=== PATIENT | female | born 1940 | race Caucasian/White ===

== ENCOUNTER 2016-12-19 13:59 | Inpatient (IN) | payer OTHER ==
[~2016-12-19] VITALS: Ht 157.5 cm; Wt 49.5 kg
[2016-12-19] MEDS ORDERED: SODIUM CHLORIDE FLUSH 10ML SYR IVF ONE ×2 (15:00→15:30)
[2016-12-19] MEDS ORDERED: ONDANSETRON 2MG/ML, 2ML IVPush ONE ×2 (15:00→15:30)
[2016-12-19 15:06] LABS: BLOOD UREA NITROGEN 9 mg/dL (7-18)
[2016-12-19] MEDS ORDERED: POTASSIUM CHLORIDE 20 MEQ TAB.ER.PRT PO ONE (15:30)
[2016-12-19 15:45] LABS: ASPARTATE AMINO TRANSFERASE 21 U/L (15-37)
[2016-12-19 15:49] LABS: IS PT STATUS REG ER OR PRE ER? YES
[2016-12-19] MEDS ORDERED: OMNIPAQUE 350 MG/ML, 100ML BOTTLE ONE (17:10)
[2016-12-19] MEDS ORDERED: IBUPROFEN 200 MG TABLET ONE (17:16)
[2016-12-19] MEDS ORDERED: POTASSIUM CHLORIDE 20 MEQ TAB.ER.PRT ONE (17:16)
[2016-12-19] MEDS ORDERED: IBUPROFEN 200 MG TABLET PO ONE (17:30)
[2016-12-19] MEDS ORDERED: PARO10TA3 PO (19:29)
[2016-12-19] MEDS ORDERED: LISI-170 PO (19:29)
[2016-12-19] MEDS ORDERED: AMLO5TAB2 PO (19:31)
[2016-12-19] MEDS ORDERED: DORZ10DR7 EACHEYE (19:31)
[2016-12-19] MEDS ORDERED: DOCUSATE 100 MG CAPSULE PO PRN (20:30)
[2016-12-19] MEDS ORDERED: BISACODYL 10 MG SUPP PR PRN (20:30)
[2016-12-19] MEDS ORDERED: ONDANSETRON 2MG/ML, 2ML IVPush PRN (20:30)
[2016-12-19] MEDS ORDERED: hydrALAzine 20 MG/ML, 1ML IVPush PRN (20:30)
[2016-12-19] MEDS ORDERED: POLYETHYLENE GLYCOL 17 GM PACKET PO PRN (20:30)
[2016-12-19] MEDS: Dorzolamide Hcl/Timolol Maleat (Dorzolamide-Timolol Eye Drops EACHEYE SCH (21:00)
[2016-12-19] MEDS ORDERED: LATANOPROST OPHTH 0.005%, 2.5ML EACHEYE SCH (22:00)
[2016-12-19 22:20] VITALS: BP 104/60
[2016-12-19] MEDS: NICOTINE 14MG/24 HR PATCH.TD24 TD SCH (22:44)
[2016-12-19] MEDS: NS + 20MEQ KCL 1,000 ML IV SCH (22:47)
[2016-12-19] MEDS: HEPARIN 5,000 UNITS/ML, 1ML SQ SCH (22:48)
[2016-12-19 22:54] VITALS: BP 104/60
[2016-12-19] MEDS: TRAZODONE 50MG TABLET PO PRN (23:17)
[2016-12-20] VITALS (7 sets, daily range): BP systolic 110–148; BP diastolic 63–83
[2016-12-20] MEDS: morphine SULFATE 10 MG/ML, 1ML IVPush PRN ×4 (03:34→18:28)
[2016-12-20] MEDS: NS + 20MEQ KCL 1,000 ML IV SCH ×3 (04:47→22:16)
[2016-12-20 05:30] LABS: ASPARTATE AMINO TRANSFERASE 15 U/L (15-37); BLOOD UREA NITROGEN 9 mg/dL (7-18)
[2016-12-20] MEDS: HEPARIN 5,000 UNITS/ML, 1ML SQ SCH ×3 (08:52→22:16)
[2016-12-20] MEDS: PAROXETINE 10 MG TABLET PO SCH (08:52)
[2016-12-20] MEDS: THIAMINE 100MG TABLET PO SCH (08:52)
[2016-12-20] MEDS: FOLIC ACID 1 MG TABLET PO SCH (08:52)
[2016-12-20] MEDS: Dorzolamide Hcl/Timolol Maleat (Dorzolamide-Timolol Eye Drops EACHEYE SCH ×2 (08:52→21:00)
[2016-12-20] MEDS ORDERED: OMNIPAQUE 350 MG/ML, 100ML BOTTLE ONE (12:29)
[2016-12-20] MEDS ORDERED: NS + 20MEQ KCL 1,000 ML IV SCH (20:09)
[2016-12-20] MEDS: LATANOPROST OPHTH 0.005%, 2.5ML EACHEYE SCH (21:00)
[2016-12-20] MEDS: TRAZODONE 50MG TABLET PO PRN (22:16)
[2016-12-20] MEDS: NICOTINE 14MG/24 HR PATCH.TD24 TD SCH (22:17)
[2016-12-21] VITALS (7 sets, daily range): BP systolic 109–167; BP diastolic 63–81
[2016-12-21 05:52] LABS: BLOOD UREA NITROGEN 6 mg/dL (7-18)
[2016-12-21] MEDS: NS + 20MEQ KCL 1,000 ML IV SCH (06:24)
[2016-12-21] MEDS: PAROXETINE 10 MG TABLET PO SCH (08:46)
[2016-12-21] MEDS: THIAMINE 100MG TABLET PO SCH (08:46)
[2016-12-21] MEDS: FOLIC ACID 1 MG TABLET PO SCH (08:46)
[2016-12-21] MEDS: HEPARIN 5,000 UNITS/ML, 1ML SQ SCH ×3 (08:59→23:30)
[2016-12-21] MEDS: CYANOCOBALAMIN 1,000 MCG/ML, 1ML IM SCH (09:00)
[2016-12-21] MEDS: Dorzolamide Hcl/Timolol Maleat (Dorzolamide-Timolol Eye Drops EACHEYE SCH ×2 (09:00→21:00)
[2016-12-21] MEDS: morphine SULFATE 10 MG/ML, 1ML IVPush PRN ×3 (09:06→22:28)
[2016-12-21] MEDS ORDERED: MAGNESIUM SULFATE PMX 2GM/50ML 50 ML IV ONE (11:00)
[2016-12-21] MEDS: LATANOPROST OPHTH 0.005%, 2.5ML EACHEYE SCH (21:00)
[2016-12-21] MEDS: LISINOPRIL 10 MG TABLET PO SCH (22:16)
[2016-12-21] MEDS ORDERED: MORPHINE SULFATE 4 MG/ML, 1ML ONE (22:25)
[2016-12-21] MEDS: NICOTINE 14MG/24 HR PATCH.TD24 TD SCH (23:00)
[2016-12-22 01:32] VITALS: BP 144/83
[2016-12-22 05:19] LABS: BLOOD UREA NITROGEN 8 mg/dL (7-18)
[2016-12-22] MEDS ORDERED: ASPIRIN 81 MG TABLET EC PO SCH (06:00)
[2016-12-22] MEDS: Dorzolamide Hcl/Timolol Maleat (Dorzolamide-Timolol Eye Drops EACHEYE SCH (09:00)
[2016-12-22] MEDS ORDERED: POTASSIUM CHLORIDE 20 MEQ TAB.ER.PRT PO ONE (09:00)
[2016-12-22] MEDS ORDERED: OMEGA-3/FISH OIL CAPSULE PO SCH (09:00)
[2016-12-22 09:39] VITALS: BP 117/72
[2016-12-22] MEDS: HEPARIN 5,000 UNITS/ML, 1ML SQ SCH (09:44)
[2016-12-22] MEDS: THIAMINE 100MG TABLET PO SCH (09:45)
[2016-12-22] MEDS: FOLIC ACID 1 MG TABLET PO SCH (09:45)
[2016-12-22] MEDS: PAROXETINE 10 MG TABLET PO SCH (09:46)
[2016-12-22] MEDS: CYANOCOBALAMIN 1,000 MCG/ML, 1ML IM SCH (09:46)
[2016-12-22] MEDS: LISINOPRIL 10 MG TABLET PO SCH (09:46)
[2016-12-22] MEDS: ACETAMINOPHEN 325 MG TABLET PO PRN ×2 (09:47→16:06)
[2016-12-22 13:30] VITALS: BP 120/68
[2016-12-22] MEDS ORDERED: OMEG1CAP6 PO (15:48)
[2016-12-22] MEDS ORDERED: CYAN10002 IM (15:48)
[2016-12-22] MEDS ORDERED: THIA100T6 PO (15:48)
[2016-12-22] MEDS ORDERED: NICO1PAT4 TD (15:48)
[2016-12-22] MEDS ORDERED: MULT-484 PO (15:48)
[2016-12-22] MEDS ORDERED: ASPI-621 PO (15:48)
[2016-12-22] MEDS ORDERED: LISI-170 PO (15:48)
[2016-12-22] MEDS ORDERED: FOLI-17 PO (15:48)
== END 2016-12-22 18:40 | disposition home or self-care (01) | DRG 74 ==
LOC: ED 18:15 → EDIP 20:03 → 4WST 21:12
PROVIDERS: ADMIT Internal Medicine; ATTEND Internal Medicine
DX: G90.8 Other disorders of autonomic nervous system (principal); E87.1 Hypo-osmolality and hyponatremia; S22.080A Wedge compression fracture of T11-T12 vertebra, initial encounter for closed fracture; E78.5 Hyperlipidemia, unspecified; E78.1 Pure hyperglyceridemia; E86.1 Hypovolemia; E87.6 Hypokalemia; F17.210 Nicotine dependence, cigarettes, uncomplicated; H40.9 Unspecified glaucoma; I10 Essential (primary) hypertension; I49.3 Ventricular premature depolarization; A08.4 Viral intestinal infection, unspecified; F32.9 Major depressive disorder, single episode, unspecified; M54.5 Low back pain; I65.21 Occlusion and stenosis of right carotid artery; M81.0 Age-related osteoporosis without current pathological fracture; E86.0 Dehydration; W19.XXXA Unspecified fall, initial encounter; D75.89 Other specified diseases of blood and blood-forming organs; Z80.8 Family history of malignant neoplasm of other organs or systems; Z82.49 Family history of ischemic heart disease and other diseases of the circulatory system; Z91.81 History of falling; Z90.710 Acquired absence of both cervix and uterus; Z90.49 Acquired absence of other specified parts of digestive tract; Z88.5 Allergy status to narcotic agent; Z79.82 Long term (current) use of aspirin; Y93.89 Activity, other specified; Y92.89 Other specified places as the place of occurrence of the external cause; Y99.8 Other external cause status
CPT/HCPCS: 36415; 70450; 70496; 70498; 71010; 71275; 72080; 72110; 72148; 72220; 80048; 80053; 80061; 81001; 82607; 82746; 83735; 84100; 84439; 84443; 84484; 85025; 85379; 85610; 85730; 93005; 93306; 93880; 99285; J1644; J3480; Q9967; J2270; J3420; J3475

== ENCOUNTER 2017-02-19 06:20 | Inpatient (IN) | payer OTHER ==
[~2017-02-19] VITALS: Ht 157.5 cm; Wt 52.6 kg
[~2017-02-19 06:20] MED LIST: AMLO10TA2 PO; AMLO5TAB2 PO; ASPI-496 PO; ASPI-621 PO; CYAN10002 IM; DORZ10DR21 EACHEYE; DORZ10DR7 EACHEYE; FOLI-17 PO; LISI-167 PO; LISI-170 PO; MULT-108 PO; MULT-484 PO; NICO1PAT4 TD; OMEG1CAP26 PO; OMEG1CAP6 PO; PARO10TA3 PO; THIA100T6 PO
[2017-02-19] MEDS ORDERED: LACTATED RINGERS 1,000 ML IV SCH (06:58)
[2017-02-19 06:59] VITALS: BP 133/77
[2017-02-19] MEDS ORDERED: LIDOCAINE 1%, 2ML ONE (07:02)
[2017-02-19] MEDS ORDERED: LIDOCAINE 1%, 2ML SQ PRN (07:30)
[2017-02-19] MEDS ORDERED: HEPARIN 1,000 UNITS/ML, 10ML ONE (07:53)
[2017-02-19] MEDS ORDERED: PROTAMINE SULFATE 10 MG/ML, 5ML ONE (07:53)
[2017-02-19] MEDS ORDERED: PAPAVERINE 30 MG/ML, 2ML ONE (07:53)
[2017-02-19] MEDS ORDERED: BACITRACIN 50,000 UNIT ONE (07:54)
[2017-02-19] MEDS ORDERED: LIDOCAINE/PF 1%, 30ML ONE (07:54)
[2017-02-19] MEDS ORDERED: BUPIVACAINE/PF 0.5% ONE (07:54)
[2017-02-19] MEDS ORDERED: EPINEPHRINE 1 MG/ML, 1ML ONE (07:55)
[2017-02-19] MEDS ORDERED: THROMBIN 20,000 UNIT VIAL TP ONE (07:59)
[2017-02-19] MEDS ORDERED: HEPARIN 1,000 UNITS/ML, 10ML IV ONE (08:30)
[2017-02-19] MEDS ORDERED: BACITRACIN 50,000 UNIT IRRIG ONE (08:30)
[2017-02-19] MEDS ORDERED: BUPIVACAINE/PF-EPI 0.5% 1:200K INFIL ONE (08:30)
[2017-02-19] MEDS ORDERED: FENTANYL PF 100 MCG/2ML ONE ×2 (08:57)
[2017-02-19] MEDS ORDERED: LABETALOL 5MG/ML, 20ML ONE ×2 (09:21→12:26)
[2017-02-19] MEDS ORDERED: ROCURONIUM 10 MG/ML ONE (09:21)
[2017-02-19] MEDS ORDERED: PHENYLEPHRINE 10 MG/ML ONE (09:21)
[2017-02-19] MEDS ORDERED: GLYCOPYRROLATE 0.2MG/1ML ONE (09:21)
[2017-02-19] MEDS ORDERED: NEOSTIGMINE 1 MG/ML, 10ML ONE (09:21)
[2017-02-19] MEDS ORDERED: DEXAMETHASONE 4 MG/ML, 1ML ONE (09:21)
[2017-02-19] MEDS ORDERED: CEFAZOLIN 1,000 MG ONE (09:21)
[2017-02-19] MEDS ORDERED: PROPOFOL 10 MG/ML, 20ML ONE (09:21)
[2017-02-19] MEDS ORDERED: ONDANSETRON 2MG/ML, 2ML ONE (09:21)
[2017-02-19] MEDS ORDERED: HYDROmorphone 1 MG/ML, 1ML IV PRN (09:30)
[2017-02-19] MEDS ORDERED: METOPROLOL 1 MG/ML, 5ML IV PRN (09:30)
[2017-02-19] MEDS ORDERED: FENTANYL PF 100 MCG/2ML IV PRN (09:30)
[2017-02-19] MEDS ORDERED: ACETAMINOPHEN 325 MG TABLET PO PRN (09:30)
[2017-02-19] MEDS ORDERED: hydrALAzine 20 MG/ML, 1ML IV PRN (09:30)
[2017-02-19] MEDS ORDERED: PROMETHAZINE 25 MG/ML, 1ML IV PRN (09:30)
[2017-02-19] MEDS ORDERED: LABETALOL 5MG/ML, 20ML IV PRN (09:30)
[2017-02-19] MEDS ORDERED: ONDANSETRON 2MG/ML, 2ML IVPush PRN (09:30)
[2017-02-19] MEDS ORDERED: OXYcodone 5 MG/5 ML ORAL.SOL UDC PO PRN (09:30)
[2017-02-19] MEDS ORDERED: MEPERIDINE/PF 25MG/0.5ML IVPush PRN (09:30)
[2017-02-19] MEDS ORDERED: ACETAMINOPHEN 650 MG/20.3 ML UDC ONE (12:17)
[2017-02-19] MEDS ORDERED: OXYcodone 5 MG/5 ML ORAL.SOL UDC ONE (12:17)
[2017-02-19] MEDS ORDERED: hydrALAzine 20 MG/ML, 1ML ONE (12:26)
[2017-02-19] MEDS ORDERED: ONDANSETRON 2MG/ML, 2ML IV PRN (14:30)
[2017-02-19] MEDS ORDERED: HYDROcodone/APAP 5/325 TABLET PO PRN (14:30)
[2017-02-19] MEDS ORDERED: morphine SULFATE 10 MG/ML, 1ML IV PRN (14:30)
[2017-02-19] MEDS ORDERED: LABETALOL 5MG/ML, 20ML IVPush PRN (14:30)
[2017-02-19] MEDS ORDERED: NITROPRUSSIDE 50 MG in DEXTROSE 5% 248 ML IV SCH (14:30)
[2017-02-19] MEDS ORDERED: PHENYLEPHRINE 10 MG in DEXTROSE 5% 249 ML IV SCH (14:30)
[2017-02-19] MEDS: POTASSIUM CHLORIDE 20 MEQ in D5%-0.45% NACL 1,000 ML IV SCH (15:07)
[2017-02-19] MEDS: CEFAZOLIN PMX 1GM/50ML 50 ML IVPB SCH (17:45)
[2017-02-19 20:12] VITALS: BP 123/55
[2017-02-19] MEDS ORDERED: TIMOLOL OPHTH 0.5%, 5ML EACHEYE SCH (21:00)
[2017-02-19] MEDS ORDERED: LISINOPRIL 10 MG TABLET PO SCH (21:00)
[2017-02-19] MEDS ORDERED: DORZOLAMIDE OPHTH 2%, 10ML EACHEYE SCH (21:00)
[2017-02-19] MEDS ORDERED: AMLODIPINE 5 MG TABLET PO SCH (21:00)
[2017-02-19 21:34] VITALS: BP 101/51
[2017-02-19 22:03] VITALS: BP 103/48
[2017-02-19 23:53] VITALS: BP 106/51
[2017-02-20] MEDS: CEFAZOLIN PMX 1GM/50ML 50 ML IVPB SCH (01:24)
[2017-02-20 03:17] VITALS: BP 109/63
[2017-02-20] MEDS: POTASSIUM CHLORIDE 20 MEQ in D5%-0.45% NACL 1,000 ML IV SCH (03:58)
[2017-02-20] MEDS ORDERED: ASPIRIN 81 MG TABLET EC PO SCH (06:00)
[2017-02-20 07:52] VITALS: BP 130/61
[2017-02-20] MEDS ORDERED: PAROXETINE 10 MG TABLET PO SCH (09:00)
[2017-02-20] MEDS ORDERED: OMEGA-3/FISH OIL CAPSULE PO SCH (09:00)
[2017-02-20] MEDS ORDERED: MULTIVITAMINS/MINERALS TABLET PO SCH (09:00)
[2017-02-20 10:20] VITALS: BP 118/52
[2017-02-20] MEDS ORDERED: HYDR-3240 PO (10:39)
[2017-02-20] MEDS ORDERED: ONDA4TAB7 PO (10:41)
== END 2017-02-20 10:52 | disposition home or self-care (01) | DRG 39 ==
LOC: ORIP 06:20 → 4NOR 14:01 → DCLOUNGE 02-20 10:30
PROVIDERS: ADMIT Surgery Vascular Surgery; ATTEND Surgery Vascular Surgery
PROC: 03CH0Z6 (ICD-10-PCS; 2017-02-19)
PROC: 03UH0KZ Supplement Right Common Carotid Artery with Nonautologous Tissue Substitute, Open Approach (ICD-10-PCS; 2017-02-19)
PROC: 03UK0KZ Supplement Right Internal Carotid Artery with Nonautologous Tissue Substitute, Open Approach (ICD-10-PCS; 2017-02-19)
PROC: 03CK0Z6 (ICD-10-PCS; principal; 2017-02-19 09:00)
DX: I65.21 Occlusion and stenosis of right carotid artery (principal); I10 Essential (primary) hypertension; F17.200 Nicotine dependence, unspecified, uncomplicated; F41.9 Anxiety disorder, unspecified; F32.9 Major depressive disorder, single episode, unspecified; Z86.73 Personal history of transient ischemic attack (TIA), and cerebral infarction without residual deficits; Z90.710 Acquired absence of both cervix and uterus; Z88.5 Allergy status to narcotic agent; Z80.8 Family history of malignant neoplasm of other organs or systems
CPT/HCPCS: 36415; 86850; 86900; 95938; 95941; C1729; J0171; J0690; J1100; J1644; J2405; J2704; J2710; J2720; J3010; J3480; J3490; C1768; J2370; J2440; J7120